=== PATIENT | male | born 1995 | race Hispanic/Latino ===

== ENCOUNTER 2024-12-02 19:26 | Emergency (ER) | payer SELFPAY ==
[~2024-12-02] VITALS: Ht 152.4 cm; Wt 45.4 kg
--- NOTE | 2024-12-02 19:30 | NUR ---
RASHID LIVINGSTON PROVIDED
[2024-12-02] MEDS: PANTOPrazole 40 MG/VIAL IVP ONE (20:58)
[2024-12-02] MEDS: ondanSETRON 4MG INJ IVP ONE (20:58)
[2024-12-02] MEDS: 0.9%NACL 1000ML 1,000 ML IV ONE (20:58)
[2024-12-02] MEDS: morPHINE 4 MG SYG IVP ONE (20:58)
[2024-12-02 21:01] LABS: BASOPHILS # (AUTO) 0.02 K/uL (0.00-0.20); BASOPHILS % (AUTO) 0.7 % (0.0-5.0); EOSINOPHILS # (AUTO) 0.19 K/uL (0.00-0.70); EOSINOPHILS % (AUTO) 6.8 % (0.0-8.0); HEMATOCRIT 35.5 % (42-54); IMMATURE GRANULOCYTE ABSOLUTE 0.01 K/uL (0-1); LYMPHOCYTES # (AUTO) 0.6 K/uL (1.0-4.8); LYMPHOCYTES % (AUTO) 21.1 % (21.0-51.0); MEAN CORPUSCULAR HEMOGLOBIN 29.7 pg (27.0-33.0); MEAN CORPUSCULAR HGB CONC 33.5 g/dL (32.0-36.0); MEAN CORPUSCULAR VOLUME 88.5 fL (79-99); MONOCYTES # (AUTO) 0.3 K/uL (0.1-1.0); MONOCYTES % (AUTO) 12.2 % (3.0-13.0); NEUTROPHILS # (AUTO) 1.6 K/uL (1.8-7.7); NEUTROPHILS % (AUTO) 58.8 % (40.0-77.0); PLATELET COUNT (AUTO) 308 K/uL (130-400); RED BLOOD CELL COUNT(AUTO) 4.01 MIL/uL (4.50-6.20); RED CELL DISTRIBUTION WIDTH 13.5 % (11.0-15.5); WHITE BLOOD COUNT (AUTO) 2.8 K/uL (4.8-10.8)
[2024-12-02 21:05] LABS: ADD UA MICROSCOPIC YES; APPEARANCE,URINE CLEAR (CLEAR); BILIRUBIN,URINE NEGATIVE (NEGATIVE); COLOR,URINE LIGHT-YELLOW (YELLOW); GLUCOSE, URINE (UA) NEGATIVE (NEGATIVE); KETONES,URINE NEGATIVE (NEGATIVE); LEUKOCYTE ESTERASE ,URINE NEGATIVE Leu/uL (NEGATIVE); NITRATE,URINE NEGATIVE (NEGATIVE); OCCULT BLOOD,URINE NEGATIVE (NEGATIVE); PROTEIN,URINE 10 mg/dL (NEGATIVE); UROBILINOGEN,URINE 0.2 mg/dL (0.2-1.0)
[2024-12-02 21:07] LABS: WBC,URINE 0-1 /HPF (0-1)
[2024-12-02 21:14] LABS: CREATININE 0.8 mg/dL (0.5-1.3); POTASSIUM 3.8 mmol/L (3.5-5.1)
[2024-12-02 21:24] LABS: ALBUMIN 3.1 g/dL (3.5-5.0); BILIRUBIN,DIRECT 0.1 mg/dL (0.0-0.3); BILIRUBIN,TOTAL 0.2 mg/dL (0.2-1.0); TOTAL PROTEIN, SERUM 9.2 g/dL (6.0-8.3)
[2024-12-02 21:30] LABS: BAND NEUTROPHILS % (MANUAL) 9 % (0-2); EOSINOPHILS % (MANUAL) 8 % (1-6); LYMPHOCYTES % (MANUAL) 12 % (22-44); MAN.DIFF COMMENT-IMPRESSION MANUAL DIFFERENTIAL; MONOCYTES % (MANUAL) 6 % (2-9); REACTIVE LYMPHOCYTES 9 % (0-0); SEGMENTED NEUTROPHILS % 56 % (40-70); TOTAL CELLS COUNTED 100
[2024-12-02 21:31] LABS: PLATELET MORPHOLOGY COMMENT LARGE PLTS PRESENT
--- NOTE | 2024-12-02 21:38 | ERN ---
ED Note History of Present Illness Stated Complaint: ABD PAIN Chief Complaint: Abdominal Pain Time Seen by MD: 19:37 Time Seen by Midlevel: 19:37 Dictation: The patient is a 29-year-old male with a history of cholecystectomy four months ago who presents to the emergency department with complaints of epigastric abdominal pain onset 20 days ago. Patient denies any nausea, vomiting, diarrhea, constipation. Denies any fevers. Allergies: Coded Allergies: No Known Allergies (Unverified Allergy, Unknown, 12/02/24) Home Meds Active Scripts Pantoprazole Sodium (Pantoprazole Sodium) 20 Mg Tablet.dr, 1 TAB PO DAILY for 30 Days, #30 TAB 0 Refills Prov:DHARA TSANG CORPORATE SAFETY COORDINATOR 12/02/24 Past Medical History Past Medical History: No Pertinent History Surgical History: Cholecystectomy RN Note Reviewed/Agreed w/PFSH: Yes Review of System Dictation Constitutional: Negative for fever,chills, and weight loss Eyes: Negative for injury, pain,redness, and discharge ENT: Negative for injury,pain or swelling Cardiovascular: Negative for chest pain, palpitations, and edema Respiratory: Negative for shortness of breath, cough, and wheezing, Abdomen/GI: Negative for nausea, vomiting, diarrhea, and constipation positive for abdominal pain, Back: Negative for injury and pain : Negative for injury, bleeding and discharge MS/Extremity: Negative for injury and deformity Skin: Negative for rash, and discoloration Neuro: Negative for headache, weakness, numbness, tingling, and seizure Psych: Negative for suicide ideation, homicidal ideation, and hallucinations Initial Vital Sign VS Vital Signs Date Time Temp Pulse Resp B/P (MAP) Pulse Ox O2 Delivery O2 Flow Rate FiO2 12/02/24 19:27 97.5 91 16 115/80 99 Room Air 12/02/24 23:07 0 21 Physical Exam Dictation Vital Signs reviewed General Appearance: Alert, oriented x 3, no acute distress, well developed, nourished. Head and Face: non-traumatic. Eyes: PERRL, pink conjunctivas, eyelid no trauma, anterior chamber with arcus senilis. Ears: Pinnas intact and no signs of trauma or erythema ear canals clear and no discharge TM no erythema Nose: No discharge, no bleeding. Oropharynx: Mouth normal, tongue pink. pharynx clear,no erythema, tonsils no exudates, no abscesses noted, mucous membrane moist Neck: Supple, non-tender, no thyromegaly, no masses, no JVD, no bruits Breast:Deferred Chest:No tenderness, no crepitus, no paradoxical movement, no retractions Lungs:Clear, well-ventilated, symmetric, no rales, no wheezing, no rhonchi, no stridor, good breath sounds bilaterally Heart: Regular rate, regular rhythm, no murmur, no gallops Vascular: no peripheral edema, Abdomen: Soft, positive bowel sounds, nondistended, no guarding, nontender, no rebound, no masses no hepatomegaly, no splenomegaly, no Will's sign, no hernias. Rectal: Deferred Genital: Deferred Neurological: Normal speech, motor function intact, sensory function intact Musculoskeletal: Neck nontender, full range of motion, back nontender, full range of motion, Extremities: nontender, full range of motion Skin: Color pink, dry, no turgor, no rash, no lacerations, no abrasions, no contusions. Lymphatic: Deferred Results (Laboratory/Radiology) Laboratory/Radiology Laboratory Tests Test 12/02/24 20:50 White Blood Count 2.8 K/uL (4.8-10.8) L Red Blood Count 4.01 MIL/uL (4.50-6.20) L Hemoglobin 11.9 g/dL (14.0-18.0) L Hematocrit 35.5 % (42-54) L Mean Corpuscular Volume 88.5 fL (79-99) Mean Corpuscular Hemoglobin 29.7 pg (27.0-33.0) Mean Corpuscular Hemoglobin Concent 33.5 g/dL (32.0-36.0) Red Cell Distribution Width 13.5 % (11.0-15.5) Platelet Count 308 K/uL (130-400) Mean Platelet Volume 10.1 fL (7.5-10.5) Immature Granulocyte % (Auto) 0.4 % (0-1) Neutrophils (%) (Auto) 58.8 % (40.0-77.0) Lymphocytes (%) (Auto) 21.1 % (21.0-51.0) Monocytes (%) (Auto) 12.2 % (3.0-13.0) Eosinophils (%) (Auto) 6.8 % (0.0-8.0) Basophils (%) (Auto) 0.7 % (0.0-5.0) Neutrophils # (Auto) 1.6 K/uL (1.8-7.7) L Lymphocytes # (Auto) 0.6 K/uL (1.0-4.8) L Monocytes # (Auto) 0.3 K/uL (0.1-1.0) Eosinophils # (Auto) 0.19 K/uL (0.00-0.70) Basophils # (Auto) 0.02 K/uL (0.00-0.20) Absolute Immature Granulocyte (auto 0.01 K/uL (0-1) Segmented Neutrophils % 56 % (40-70) Band Neutrophils % 9 % (0-2) H Lymphocytes % (Manual) 12 % (22-44) L Monocytes % (Manual) 6 % (2-9) Eosinophils % (Manual) 8 % (1-6) H Nucleated Red Blood Cells 0.0 % (0.0-0.19) Differential Comment MANUAL DIFFERENTIAL Reactive Lymphocytes 9 % (0-0) H White Cell Morphology Comment Platelet Morphology Comment LARGE PLTS PRESENT Red Blood Cell Morphology See comments Urine Color LIGHT-YELLOW (YELLOW) Urine Appearance CLEAR (CLEAR) Urine pH 7.0 (5.0-8.0) Urine Specific [place] 1.019 (1.001-1.031) Urine Protein 10 mg/dL (NEGATIVE) H Urine Glucose (UA) NEGATIVE mg/dL (NEGATIVE) Urine Ketones NEGATIVE mg/dL (NEGATIVE) Urine Occult Blood NEGATIVE (NEGATIVE) Urine Nitrate NEGATIVE (NEGATIVE) Urine Bilirubin NEGATIVE mg/dL (NEGATIVE) Urine Urobilinogen 0.2 mg/dL (0.2-1.0) Urine Leukocyte Esterase NEGATIVE Clifford/uL Urine RBC 2-5 /HPF (0-1) H Urine WBC 0-1 /HPF (0-1) Urine Bacteria None /HPF (None Seen) Sodium Level 139 mmol/L (136-145) Potassium Level 3.8 mmol/L (3.5-5.1) Chloride Level 101 mmol/L (101-111) Carbon Dioxide Level 33 mmol/L (21-32) H Blood Urea Nitrogen 13 mg/dL (7-18) Creatinine 0.8 mg/dL (0.5-1.3) Glomerular Filtration Rate Calc 122 mL/min (>90) Random Glucose 90 mg/dL (70-105) Total Calcium 8.8 mg/dL (8.5-10.1) Total Bilirubin 0.2 mg/dL (0.2-1.0) Direct Bilirubin 0.1 mg/dL (0.0-0.3) Aspartate Amino Transf (AST/SGOT) 85 U/L (10-37) H Alanine Aminotransferase (ALT/SGPT) 91 U/L (12-78) H Alkaline Phosphatase 326 U/L (50-136) H Total Protein 9.2 g/dL (6.0-8.3) H Albumin 3.1 g/dL (3.5-5.0) L Lipase 29 U/L (16-77) REASON: upperabd pain ORDERING PHYSICIAN: DHARA TSANG PROCEDURE: ABD PEL W - CT ABDOMEN/PELVIS W/CONTRAST CT ABDOMEN/PELVIS W/CONTRAST HISTORY: Abdominal pain COMPARISON: None TECHNIQUE: Multiple sequential axial images of the abdomen and pelvis were obtained from the dome of the diaphragm through symphysis pubis. Patient was given 75 cc of Omnipaque through intravenous route. Oral contrast was not given. FINDINGS: No pleural effusion is seen bilaterally. There is no evidence of parenchymal disease or pulmonary nodule of the visualized lower lungs. Degenerative changes of the thoracolumbar spine are present. The heart is not enlarged. There is gastric distention. Small bowel dilatation is seen. Findings may be related to enteritis with fluid-filled small bowel loops. Liver, spleen, adrenal glands and pancreas are unremarkable. There is no evidence of hydronephrosis bilaterally. No evidence of renal stone is seen. Fecal material is seen in the colon. There are normal size retroperitoneal and mesenteric lymph nodes. No ascites is seen. Appendix is not well seen limiting evaluation. Pelvic sidewalls are symmetric bilaterally. Bladder is well distended without wall thickening. IMPRESSION: 1. Large amount of fecal material is seen in the colon. CT was performed with one or more following dose reduction techniques: automated exposure control, adjustment of the mA and kv according to patient's size, or use of a iterative reconstruction technique. Labs Reviewed?: Yes ED Course ED Course Orders Procedure Category Date Status Time Cbc With Differential LAB 12/02/24 Complete 19:40 Urinalysis Profile LAB 12/02/24 Complete 19:40 0.9%Nacl 1000ml (Ns PHA 12/02/24 Complete 1000ml) 20:00 Morphine 4mg Syg PHA 12/02/24 Complete (Morphine 4mg Syg) 20:00 Ondansetron 4mg Inj PHA 12/02/24 Complete (Zofran 4mg Inj) 20:00 Pantoprazole 40mg Inj PHA 12/02/24 Complete (Protonix 40mg Inj 20:00 Lipase LAB 12/02/24 Complete 19:40 Basic Metabolic Panel LAB 12/02/24 Complete 19:40 Hepatic Function Panel LAB 12/02/24 Complete 19:40 Manual Differential LAB 12/02/24 Complete 20:50 Ct Abdomen/Pelvis CT 12/02/24 Resulted W/Contrast 21:30 Iohexol (Omnipaque) PHA 12/02/24 Complete 21:48 Current Medications Medications (Trade) Dose Ordered Sig/Rey Route PRN Reason Start Time Stop Time Status Last Admin Dose Admin Iohexol (Omnipaque) 75 ml STK-MED ONCE IV 12/02/24 21:48 12/02/24 21:48 DC Morphine Sulfate (morPHINE 4MG SYG) 4 mg ONCE ONCE IVP 12/02/24 20:00 12/02/24 20:01 DC 12/02/24 20:58 Ondansetron HCl (zoFRAN 4MG INJ) 4 mg ONCE ONCE IVP 12/02/24 20:00 12/02/24 20:01 DC 12/02/24 20:58 Pantoprazole Sodium (PROTonix 40MG INJ) 40 mg ONCE ONCE IVP 12/02/24 20:00 12/02/24 20:01 DC 12/02/24 20:58 Sodium Chloride 1,000 ml @ 0 mls/hr ONCE ONCE IV 12/02/24 20:00 12/02/24 20:01 DC 12/02/24 20:58 Vital Signs Date Time Temp Pulse Resp B/P (MAP) Pulse Ox O2 Delivery O2 Flow Rate FiO2 12/02/24 23:07 98.6 90 18 118/76 99 Room Air* 0 21 12/02/24 19:27 97.5 91 16 115/80 99 Room Air Medical Decision Making MDM The patient is a 29-year-old male with a history of cholecystectomy four months ago who presents to the emergency department with complaints of epigastric abdominal pain onset 20 days ago. Patient denies any nausea, vomiting, diarrhea, constipation. Denies any fevers. CBC showed low WBCs, mild normocytic anemia, chemistry showed no electrolyte imbalance, normal renal function, slightly elevated liver enzymes, urinalysis unremarkable, CT showed large amounts of fecal material in the colon. Small dilated loops. Gastric distention. Patient with no nausea or vomiting. Patient with a nontender abdomen. In no acute distress. Will be discharged to follow up with PCP. Patient reports he is following up with a clinic in waiting on some lab results. Labs and imaging discussed with the patient who agrees to follow up. Differential diagnosis: Gastroenteritis, gastritis, dehydration, electrolyte imbalance Need for hospitalization: Patient does not meet criteria for hospitalization. There are no social concerns with this patient. DX & DISP Disposition: Discharge Departure Impression: Primary Impression: Epigastric pain Condition: Stable Scripts Pantoprazole Sodium (Pantoprazole Sodium) 20 Mg Tablet.dr 1 TAB PO DAILY for 30 Days, #30 TAB 0 Refills Prov: DHARA TSANG 12/02/24 Additional Instructions: Please follow up with your primary doctor in 1-2 days. If symptoms worsen please return to ER. FOLLOW-UP WITH PRIMARY CARE PROVIDER IN 1 TO 2 DAYS. TAKE MEDICATIONS DIRECTED HERE IN THE EMERGENCY ROOM. OKAY TO CONTINUE HOME MEDICATIONS UNLESS OTHERWISE DISCUSSED DURING YOUR VISIT IN THE EMERGENCY ROOM TODAY. RETURN TO YOUR NEAREST EMERGENCY ROOM IF SYMPTOMS WORSEN OR IF THERE IS NO IMPROVEMENT. CALL 911 IF YOU NEED IMMEDIATE ASSISTANCE. TAKE TYLENOL OR MOTRIN [id number] NEEDED AND IF NO CONTRAINDICATIONS ARE PRESENT. INCREASE ORAL HYDRATION. A WOUND CULTURE OR URINE CULTURE WAS ORDERED HERE IN THE EMERGENCY ROOM DEPARTMENT PLEASE FOLLOW-UP WITH PRIMARY CARE PROVIDER AND ADVISE THEM TO GET REPEAT PORTS FROM OUR FACILITY. IF YOU HAD ANY ADARSH WRAP/SPLINTS THAT WERE APPLIED HERE, PLEASE DO NOT REMOVE THEM UNTIL YOU SEE YOUR PRIMARY CARE OR SPECIALTY. Referrals: SELF,REFERRAL (PCP) Time of Disposition: 22:56 I have reviewed the case, and I agree with, Diagnosis and Plan I performed a substantive portion of the visit. I have reviewed and personally made and approve the management plan that is documented in the notes by myself w ith MANDA/resident. I acknowledged full responsibility for the patient's management plan. DHARA TSANG Dec 02, 2024 21:38 KALYANI ROTH DO Dec 03, 2024 02:12
[2024-12-02] MEDS ORDERED: IOHEXOL-350 75 ML VIAL IV ONE (21:48)
--- NOTE | 2024-12-02 22:42 | HMCIMG ---
CT ABDOMEN/PELVIS W/CONTRAST HISTORY: Abdominal pain COMPARISON: None TECHNIQUE: Multiple sequential axial images of the abdomen and pelvis were obtained from the dome of the diaphragm through symphysis pubis. Patient was given 75 cc of Omnipaque through intravenous route. Oral contrast was not given. FINDINGS: No pleural effusion is seen bilaterally. There is no evidence of parenchymal disease or pulmonary nodule of the visualized lower lungs. Degenerative changes of the thoracolumbar spine are present. The heart is not enlarged. There is gastric distention. Small bowel dilatation is seen. Findings may be related to enteritis with fluid-filled small bowel loops. Liver, spleen, adrenal glands and pancreas are unremarkable. There is no evidence of hydronephrosis bilaterally. No evidence of renal stone is seen. Fecal material is seen in the colon. There are normal size retroperitoneal and mesenteric lymph nodes. No ascites is seen. Appendix is not well seen limiting evaluation. Pelvic sidewalls are symmetric bilaterally. Bladder is well distended without wall thickening. IMPRESSION: 1. Large amount of fecal material is seen in the colon. CT was performed with one or more following dose reduction techniques: automated exposure control, adjustment of the mA and kv according to patient's size, or use of a iterative reconstruction technique.
[2024-12-02] MEDS ORDERED: PANT20TA18 PO (22:58)
[2024-12-02 23:07] VITALS: BP 118/76; PULSE 90; RESP 18; TEMP 98.6; O2SAT 99
== END 2024-12-02 23:19 | disposition home or self-care (01) ==
LOC: EDH 19:26
DX: R10.13 Epigastric pain (principal); Z79.899 Other long term (current) drug therapy; Z90.49 Acquired absence of other specified parts of digestive tract
CPT/HCPCS: 99285; 74177; 96374; 96375; 80076; 80048; 83690; 85025; 81001; 36415; J7030; J2405; J2270; J2470; Q9967